=== PATIENT | male | born 1960 | race Caucasian/White ===

== ENCOUNTER → 2024-11-17 14:50 | Outpatient (REF) | payer BC, SELFPAY | LOC: DHSLP 14:50 | PROVIDERS: ATTENDING PHYSICIAN Internal Medicine Pulmonary Disease; FAMILY PHYSICIAN Internal Medicine | DX: G47.33 Obstructive sleep apnea (adult) (pediatric) (principal); R06.83 Snoring | CPT/HCPCS: 95810 ==